=== PATIENT | male | born 2000 | race Two or more races ===

== ENCOUNTER 2019-04-24 16:09 | Emergency (ER) | payer MEDICAID ==
[~2019-04-24] VITALS: Ht 170.2 cm; Wt 59.0 kg
[2019-04-24] MEDS ORDERED: PREDNISONE 20MG TABLET PO ONE (20:00)
[2019-04-24] MEDS ORDERED: DIPHENHYDRAMINE 25MG CAPSULE PO ONE (20:00)
[2019-04-24 21:52] VITALS: BP 124/71
== END 2019-04-24 21:54 | disposition home or self-care (01) ==
LOC: ER 16:09
DX: T78.40XA Allergy, unspecified, initial encounter (principal); X58.XXXA Exposure to other specified factors, initial encounter
CPT/HCPCS: 99283; J7512; Q0163